=== PATIENT | female | born 1945 | race Hispanic/Latino ===

== ENCOUNTER 2016-04-08 15:07 | Inpatient (IN) | payer MEDICARE ==
--- NOTE | 2016-04-08 17:20 | Emergency Department Report ---
ED Chest Pain HPI - General Chief Complaint: Chest Pain Stated Complaint: SOB/CHEST PAIN Time Seen by Provider: 04/08/16 16:47 Source: patient, EMS Mode of arrival: Stretcher Limitations: No Limitations - History of Present Illness Initial Comments: This is a 70-year-old female presents to the emergency department from across the street at her primary care doctor office, Dr. George Aranda, with complaint of right-sided chest pain and shortness of breath that began this morning. Patient has a history of COPD on 2 L oxygen, hepatitis C, and a kidney mass that they are "monitoring." She denies any history of CT, CVA, PE/ DVT. She is not taken anything for symptoms prior to presentation. She denies any fever, cough, nausea, vomiting, back pain or diaphoresis. Patient says that she had a full cardiac workup about one year ago with [facility] cardiology and says that everything was "normal." Severity scale (0 -10): 0 - Related Data Home Medications Medication Instructions Recorded Confirmed Last Taken Carisoprodol [Carisoprodol] 1 tab PO DAILY 04/08/16 04/08/16 04/08/16 Clarithromycin [Biaxin] 500 mg PO BID 04/08/16 04/08/16 04/08/16 Oxycodone HCl/Acetaminophen 1 tab PO TID 04/08/16 04/08/16 04/08/16 [Percocet 10/325 mg] Singulair 10 mg PO DAILY 04/08/16 04/08/16 04/08/16 Allergies Allergy/AdvReac Type Severity Reaction Status Date / Time aspirin Allergy Hives Verified 09/01/13 09:08 Penicillins Allergy Hives Verified 09/01/13 09:08 tetanus immune globulin Allergy Rash Verified 09/01/13 09:08 JUAN score - Juan Score Age > 65: (1) Yes Aspirin use within the Past 7 Days: (0) No 3 or more CAD Risk Factors: (1) Yes 2 or more Angina events in past 24 hrs: (1) Yes Known CAD with more than 50% Stenosis: (0) No Elevated Cardiac Markers: (0) No ST Deviation Greater than 0.5mm: (0) No JUAN Score: 3 ED Review of Systems ROS: Stated complaint: SOB/CHEST PAIN Other details as noted in HPI Comment: All other systems reviewed and negative Constitutional: denies: chills, fever Eyes: denies: eye pain, eye discharge, vision change ENT: denies: ear pain, throat pain Respiratory: shortness of breath. denies: cough Cardiovascular: chest pain. denies: palpitations Gastrointestinal: denies: abdominal pain, nausea, diarrhea Genitourinary: denies: urgency, dysuria, discharge Musculoskeletal: denies: back pain, joint swelling Skin: denies: rash, lesions Neurological: denies: headache, weakness, paresthesias ED Past Medical Hx - Past Medical History Hx Diabetes: No Hx Liver Disease: Yes (Hep C) Hx Renal Disease: Yes Hx COPD: Yes - Social History Smoking Status: Former Smoker Substance Use Type: None - Medications Home Medications: Home Medications Medication Instructions Recorded Confirmed Last Taken Type Carisoprodol [Carisoprodol] 1 tab PO DAILY 04/08/16 04/08/16 04/08/16 History Clarithromycin [Biaxin] 500 mg PO BID 04/08/16 04/08/16 04/08/16 History Oxycodone HCl/Acetaminophen 1 tab PO TID 04/08/16 04/08/16 04/08/16 History [Percocet 10/325 mg] Singulair 10 mg PO DAILY 04/08/16 04/08/16 04/08/16 History ED Physical Exam - General Limitations: No Limitations - Other Other exam information: GENERAL: The patient is well-developed well-nourished. HEENT: Normocephalic. Atraumatic. Extraocular motions are intact. Patient has moist mucous membranes. Pupils equal reactive to light bilaterally. NECK: Supple. Trachea is midline. CHEST/LUNGS: Clear to auscultation. There is no respiratory distress noted. Chest pain is not reproducible palpation of chest wall. HEART/CARDIOVASCULAR: Regular. There is no tachycardia. There is no gallop rub or murmur. ABDOMEN: Abdomen is soft, nontender. Patient has normal bowel sounds. There is no abdominal distention. SKIN: There is no rash. There is no edema. There is no diaphoresis. NEURO: The patient is awake, alert, and oriented. The patient is cooperative. The patient has no focal neurologic deficits. The patient has normal speech. MUSCULOSKELETAL: There is no tenderness or deformity. There is no limitation range of motion. There is no evidence of acute injury. ED Course Vital Signs 04/08/16 04/08/16 04/08/16 15:38 16:57 17:00 Temperature 98.6 F 98.9 F Pulse Rate 62 67 Pulse Rate [ Bilateral] Respiratory 22 9 L 11 L Rate Respiratory Rate [Bilateral ] Blood Pressure 130/62 Blood Pressure 115/55 [Right] O2 Sat by Pulse 98 99 Oximetry 04/08/16 04/08/16 04/08/16 17:10 17:15 17:20 Temperature Pulse Rate 63 64 Pulse Rate [ Bilateral] Respiratory 9 L 16 11 L Rate Respiratory Rate [Bilateral ] Blood Pressure 115/55 107/54 Blood Pressure [Right] O2 Sat by Pulse 100 99 99 Oximetry 04/08/16 04/08/16 04/08/16 17:30 17:38 17:40 Temperature Pulse Rate 60 64 Pulse Rate [ Bilateral] Respiratory 9 L 18 14 Rate Respiratory Rate [Bilateral ] Blood Pressure 114/63 114/63 Blood Pressure [Right] O2 Sat by Pulse 98 100 Oximetry 04/08/16 04/08/16 04/08/16 17:46 17:47 17:50 Temperature Pulse Rate 65 Pulse Rate [ 89 88 Bilateral] Respiratory 11 L Rate Respiratory 18 16 Rate [Bilateral ] Blood Pressure 108/57 Blood Pressure [Right] O2 Sat by Pulse 98 Oximetry 04/08/16 04/08/16 04/08/16 18:00 18:08 18:10 Temperature Pulse Rate 67 69 Pulse Rate [ Bilateral] Respiratory 14 18 8 L Rate Respiratory Rate [Bilateral ] Blood Pressure 112/59 112/59 Blood Pressure [Right] O2 Sat by Pulse 98 99 Oximetry 04/08/16 04/08/16 04/08/16 18:20 18:30 20:33 Temperature Pulse Rate 71 73 Pulse Rate [ Bilateral] Respiratory 9 L 19 18 Rate Respiratory Rate [Bilateral ] Blood Pressure 106/50 97/48 Blood Pressure [Right] O2 Sat by Pulse 98 97 Oximetry ED Medical Decision Making - Lab Data Result diagrams: 04/08/16 17:24 04/08/16 17:24 - EKG Data -: EKG Interpreted by Ia EKG shows normal: sinus rhythm, axis, intervals, QRS complexes, ST-T waves Rate: normal - EKG Data When compared to previous EKG there are: no significant change (05/27/11) Interpretation: normal EKG - Radiology Data Radiology results: report reviewed, image reviewed interpreted by me: Chest x-ray shows hyperinflation of the lungs and flattened diaphragm consistent with emphysema. No pleural effusions or obvious pneumonia. CT angiography of the chest does not show any pulmonary embolism. There are too vague groundglass densities seen in the right middle lobe of the lungs and may be hypoventilatory changes versus pneumonia. - Medical Decision Making 70-year-old female presents to the emergency department with complaint of right- sided chest pain and shortness of breath that began earlier this morning. She does have a history of COPD. Physical exam is mostly unremarkable except for the fact that the chest pain is not reproducible. Patient's labs include negative troponins 2 this far. EKG did not show any signs of ST elevation CT. Patient given 2 different doses of morphine and still continues of chest discomfort. Chest x-ray does not show any acute process. Patient's d-dimer was slightly elevated so a CT angiography of the chest was done that did not show any PE but did show 2 g last opacities the right middle lobe concerning for pneumonia. This matches the patient's right-sided chest pain. Blood culture sent and patient started on Levaquin and patient will be admitted to the hospital for further evaluation and treatment. Accepted for admission by the hospitalist, Dr. Ac. - Differential Diagnosis CT, CHF, Pneumonia, PE, Costochondritis, COPD Critical Care Time: No Critical care attestation.: If time is entered above; I have spent that time in minutes in the direct care of this critically ill patient, excluding procedure time. ED Disposition Clinical Impression: Chest pain Qualifiers: Chest pain type: unspecified Qualified Code(s): R07.9 - Chest pain, unspecified COPD (chronic obstructive pulmonary disease) Qualifiers: COPD type: emphysema Emphysema type: unspecified Qualified Code(s): J43.9 - Emphysema, unspecified Pneumonia Qualifiers: Pneumonia type: due to unspecified organism Laterality: right Lung location: middle lobe of lung Qualified Code(s): J18.9 - Pneumonia, unspecified organism Disposition: OP ADMITTED IP TO THIS HOSP Is pt being admited?: Yes Condition: Stable Instructions: Chest Pain (ED), Chronic Obstructive Pulmonary Disease (ED), Bacterial Pneumonia (ED) Referrals: PRIMARY CARE, [Primary Care Provider] - 3-5 Days Time of Disposition: 21:29
[2016-04-08] MEDS ORDERED: MORPHINE ONE (17:21)
[2016-04-08] MEDS ORDERED: DUONEB 0.5 MG-3 MG/3 ML SOLN IH ONE (17:24)
[2016-04-08] MEDS ORDERED: MORPHINE IV ONE ×2 (17:24→20:26)
[2016-04-08 17:38] LABS: Basophils % (Auto) 0.6 % (0.0-1.8); Eosinophils % (Auto) 1.3 % (0.0-4.3); Hematocrit 40.4 % (30.3-42.9); Hemoglobin 13.1 gm/dl (10.1-14.3); Mean Corpuscular HGB Conc 32 % (30-34); Mean Corpuscular Hemoglobin 29 pg (28-32); Mean Corpuscular Volume 90 fl (79-97); Platelet Count 306 K/mm3 (140-440); Red Blood Count 4.47 M/mm3 (3.65-5.03); Red Cell Distribution Width 15.8 % (13.2-15.2); White Blood Count 9.8 K/mm3 (4.5-11.0)
[2016-04-08 17:53] LABS: Creatine Kinase MB 3.6 ng/mL (0.0-4.0); INR 0.91 (0.87-1.13)
[2016-04-08 17:54] LABS: Alanine Aminotransferase 58 units/L (7-56); Albumin 3.9 g/dL (3.9-5); Albumin/Globulin Ratio 1.6 %; Alkaline Phosphatase 76 units/L (35-129); Bilirubin,Total 0.5 mg/dL (0.1-1.2); Creatine Kinase 65 units/L (30-135); Partial Thromboplastin Time 28.9 Sec. (24.2-36.6); Total Protein 6.3 g/dL (6.3-8.2)
[2016-04-08 18:04] LABS: Bilirubin,Direct < 0.2 mg/dL (0-0.2); Bilirubin,Indirect 0.3 mg/dL
[2016-04-08 18:09] LABS: Anion Gap 16 mmol/L; Blood Urea Nitrogen 14 mg/dL (7-17); Calcium 9.1 mg/dL (8.4-10.2); Carbon Dioxide 30 mmol/L (22-30); Chloride 100.6 mmol/L (98-107); Glucose 77 mg/dL (65-100); Potassium 4.1 mmol/L (3.6-5.0); Sodium 142 mmol/L (137-145)
--- NOTE | 2016-04-08 18:33 | Admit Criteria Form ---
Admission Criteria Documentation: CHEST PAIN Clinical Indications for Admission to Inpatient Care (Place 'X' for any and all applicable criteria): Admission is indicated for chest pain and ANY ONE of the following(1)(2)(3)(4)(5 ): [ ]I. Angina with acute coronary syndrome (Also use Myocardial Infarction or Angina guideline) [ ]II. Hemodynamic instability [ ]III. Angina needing acute intervention as indicated by ALL of the following( 11)(12): [ ]a) Unstable angina is present as indicated by angina that is ANY ONE of the following: [ ]i) New onset [ ]ii) Nocturnal [ ]iii) Prolonged at rest [ ]iv) Progressive [ ]b) Angina warrants acute intervention as indicated by ANY ONE of the following: [ ]i) Recurrent angina (e.g, not responding as previously to treatment) [ ]ii) Angina at rest or with low-level activities despite initial medical therapy [ ]iii) New or presumably new ST-segment depression on ECG [ ]iv) Signs or symptoms of heart failure (eg, dyspnea, pulmonary edema) [ ]v) New or worsening mitral regurgitation [ ]vi) Hemodynamic instability [ ]vii) Dangerous arrhythmia (eg, sustained ventricular tachycardia) [ ]viii) History of percutaneous coronary intervention within 6 months [ ]ix) History of coronary artery bypass graft surgery [ ]x) RADHA risk score of 2 or greater[A] [ ]xi) History of Diabetes(14) [ ]xii) High-risk cardiac ischemia findings on noninvasive testing (e.g, echocardiogram, treadmill testing, nuclear scan) [ ]xiii) Chronic renal insufficiency (ie, estimated GFR less than 60 mL/min/1.732m) [ ]xiv) Left ventricular ejection fraction less than 40% [ ]IV. Evidence of VT (eg, cardiac biomarkers positive, ST-segment elevation on ECG) also use Myocardial Infarction Criteria Form. [ ]V. Pulmonary edema [ ]. Respiratory distress [ ]VII. Chest pain indicative of serious diagnosis other than coronary artery disease (eg, aortic dissection) [ ]VIII. Contraindications and/or Inappropriate clinical situations for Observational Care in patients with Chest Pain, when ANY ONE of the following is required: [ ]a) Patient with risk factor for pulmonary embolism, acute coronary syndrome and myocardial infarction (18) [ ]b) Patient with Pulmonary embolism require an average LOS of 4.3 days, therefore emergency department observation management is inappropriate 18,23 [ ]c) Painful condition/s in the elderly, have the highest rate of recidivism after emergency department observation management (10.8%) 20,21,22 [ ]d) Elevated cardiac biomarker requires intensive and exhaustive care (19) [ X]IX. General contraindications and/or Inappropriate clinical situations for Observational Care in patients with Chest Pain, when ANY ONE of the following is required: [X ]a) Prediction of prolongation of LOS based on ANY ONE of the following may be considered as a contraindication for observational care 2, 3, 4, 5, 6, 7, 8, 9, 10, 11 [X ]i) Age > 65 yrs. [ ]ii) Patient arriving by ambulance [ ]iii) Patient with high acuity [ ]iv) Patient requiring vital sign monitoring [ ]v) Patient on IV medication [ ]b) Systolic blood pressures 180mmHg 3,12 [ ]c) Patient with altered mental status including delirium and other alteration of consciousness, (3) [ ]d) Patient whose discharge disposition will be to a correction home or rehabilitation home should not be managed in Emergency Department Observation Unit. CMS rule requires 3 days hospital stay before such placement. 3,13 [ ]e) Patient with failure to thrive due to broad array of etiologies 3,16,17 [ ]f) Inability to ambulate 3,14 Extended stay beyond goal length of stay may be needed for (1)(28): [ ]a) Specific condition diagnosed after evaluation (eg, pulmonary embolism, aortic dissection) [ ]b) Unstable angina [ ]c) Continued suspicion of acute coronary syndrome with inability to complete needed cardiac evaluation (eg, patient clinically unable to undergo stress testing) [ ]d) Myocardial infarction (Contents from ANGINA and CHEST PAIN clinical indications for admission to inpatient care have been integrated in this form) The original [facility] content created by [employer] has been revised. The portions of the content which have been revised are identified through the use of italic text or in bold, and [facility] [employer] has neither reviewed nor approved the modified material. All other unmodified content is copyright [facility]. Please see references footnoted in the original [facility] [employer] edition 2016 Admission Criteria Met: Yes
[2016-04-08] MEDS ORDERED: NACL ONE (18:34)
[2016-04-08] MEDS ORDERED: BENADRYL IV ONE (19:33)
--- NOTE | 2016-04-08 20:33 | Cat Scan Report ---
FINAL REPORT PROCEDURE: CT ANGIO CHEST TECHNIQUE: Computerized tomographic angiography of the chest was performed after the IV injection of iodinated nonionic contrast including image processing. The image data was postprocessed using 2-dimensional multiplanar reformatted (MPR) and 3-dimensional (MIP and/or volume rendered) techniques. HISTORY: SOB, elevated dimer COMPARISON: No prior studies are available for comparison. FINDINGS: Mild scarring is seen in the lung apices. Calcified granuloma is seen in the right upper lobe of the lungs posteriorly. Very mild ground-glass density is seen in the right middle lobe of the lungs on image 73 of series 3. Another similar tiny focus of ground-glass density is seen slightly more inferiorly in the right middle lobe. Mild atelectasis is seen at the left CP angle. No pleural effusion or pneumothorax is seen. There is slight heterogeneity of the left lobe of the thyroid gland. Small likely reactive mediastinal lymph nodes are seen. There is a tiny pericardial effusion. Heart and thoracic aorta are normal in size. No aortic dissection is seen. No pulmonary embolus is seen. IMPRESSION: No pulmonary embolus is seen. Two vague ground-glass densities are seen in the right middle lobe of the lungs and may be hypoventilatory changes or mild pneumonia.
[2016-04-08] MEDS ORDERED: LEVAQUIN 750MG/150ML 750 MG/150 ML BAG IV ONE (21:05)
[2016-04-08] MEDS ORDERED: ZOFRAN IV PRN (22:02)
[2016-04-08] MEDS ORDERED: PERCOCET 5/325 PO PRN (22:02)
[2016-04-08] MEDS ORDERED: DULCOLAX PR PRN (22:02)
[2016-04-08] MEDS ORDERED: MILK OF MAGNESIA PO PRN (22:02)
[2016-04-08] MEDS ORDERED: TYLENOL PO PRN (22:02)
--- NOTE | 2016-04-08 22:08 | History and Physical Report ---
History of Present Illness Date of examination: 04/08/16 History of present illness: 70-year-old man with a history of COPD, right kidney mass comes emergency room with complaints of right-sided chest pain and shortness of breath, nonproductive cough. She describes the chest pain as sharp, intermittent in nature lasting for 10 minutes, radiating under the right armpit, intensity follow with 5/10, she cannot identify exacerbating or relieving factors. Admits to palpitation, no nausea vomiting, diaphoresis. Patient has been treated for bronchitis as 3 weeks with azithromycin times 2, Levaquin and prednisone, she stated her symptoms have not improved overall Patient deniesabdominal pain, hematochezia, dysuria, frequency, focal weakness, dysarthria, fever chills, polydipsia polyuria, hot or cold intolerance, easy bruisability, or rash or bleeding from mucosal membrane, rhinorrhea, epistaxis, earache, tinnitus, blurry vision, eye discharge, anxiety, depression. Other review of systems negative PAST SURGICAL HISTORY: Appendectomy, hysterectomy, cholecystectomy, hernia repair SOCIAL HISTORY: Denies alcohol, tobacco, drugs FAMILY HISTORY: Hypertension Medications and Allergies Allergies Allergy/AdvReac Type Severity Reaction Status Date / Time aspirin Allergy Hives Verified 09/01/13 09:08 Penicillins Allergy Hives Verified 09/01/13 09:08 tetanus immune globulin Allergy Rash Verified 09/01/13 09:08 Home Medications Medication Instructions Recorded Confirmed Last Taken Type Carisoprodol [Carisoprodol] 1 tab PO DAILY 04/08/16 04/08/16 04/08/16 History Clarithromycin [Biaxin] 500 mg PO BID 04/08/16 04/08/16 04/08/16 History Oxycodone HCl/Acetaminophen 1 tab PO TID 04/08/16 04/08/16 04/08/16 History [Percocet 10/325 mg] Singulair 10 mg PO DAILY 04/08/16 04/08/16 04/08/16 History Active Meds: Active Medications Levofloxacin/Dextrose (Levaquin 750mg/150ml) 750 mg in 150 mls @ 100 mls/hr IV ONCE ONE Stop: 04/08/16 22:34 Exam - Physical Exam Narrative exam: Gen. appearance: Patient lying in bed, no apparent distress HEENT: Normocephalic, atraumatic, pupils equally round and reactive to light, extraocular movement intact, and no sclericterus,. No JVD or thyromegaly or nodule,neck supple, no carotid bruit ,mucous membranes moist, no exudate or erythema Heart: S1, S2, regular rate and rhythm Lungs: Crackles, breathing comfortable Abdomen: Positive bowel sounds, nontender, nondistended, no organomegaly Extremity: No edema, cyanosis, clubbing Skin: No rash, nodules, warm, dry Neuro: Oriented 3, cranial nerves II-12 intact, speech is fluent, motor and sensory intact - Constitutional Vitals: Temp Pulse Resp BP Pulse Ox 98.9 F 73 18 97/48 97 04/08/16 17:00 04/08/16 18:30 04/08/16 20:33 04/08/16 18:30 04/08/16 18:30 Results - Labs CBC & Chem 7: 04/08/16 17:24 04/08/16 17:24 Labs: Abnormal lab results 04/08/16 04/08/16 04/08/16 Range/Units 17:24 17:24 17:24 RDW 15.8 H (13.2-15.2) % [place] % (Auto) 8.2 H (0.0-7.3) % D-Dimer 276.03 H (0-234) ng/mlDDU ALT 58 H (7-56) units/L CK-MB (CK-2) Rel Index 5.5 H (0-4) - Imaging and Cardiology Chest x-ray: image reviewed CT scan - chest: report reviewed Assessment and Plan Community Acquired Pneumonia COPD exacerbation H/o right kidney mass Spinal Stenosis Admit to medicine Start IV high dose steroids, Levaquin, nebulizer treatments Check cardiac enzymes, continue appropiate outpatient medications Start dvt prophalaxis
[2016-04-09 00:21] LABS: Creatine Kinase 62 units/L (30-135); Creatine Kinase MB 3.2 ng/mL (0.0-4.0)
[2016-04-09] MEDS: DUONEB 0.5 MG-3 MG/3 ML SOLN IH PRN (04:39)
[2016-04-09 06:14] LABS: Basophils % (Auto) 0.1 % (0.0-1.8); Hematocrit 40.6 % (30.3-42.9); Hemoglobin 13.2 gm/dl (10.1-14.3); Mean Corpuscular HGB Conc 33 % (30-34); Mean Corpuscular Hemoglobin 29 pg (28-32); Mean Corpuscular Volume 90 fl (79-97); Platelet Count 287 K/mm3 (140-440); Red Blood Count 4.49 M/mm3 (3.65-5.03); Red Cell Distribution Width 15.6 % (13.2-15.2); White Blood Count 8.3 K/mm3 (4.5-11.0)
[2016-04-09 06:39] LABS: Creatine Kinase MB 2.9 ng/mL (0.0-4.0)
[2016-04-09 06:41] LABS: Creatine Kinase 46 units/L (30-135)
[2016-04-09 06:57] LABS: Anion Gap 17 mmol/L; Blood Urea Nitrogen 18 mg/dL (7-17); Carbon Dioxide 27 mmol/L (22-30); Chloride 100.5 mmol/L (98-107); Glucose 220 mg/dL (65-100); Potassium 4.7 mmol/L (3.6-5.0); Sodium 140 mmol/L (137-145)
--- NOTE | 2016-04-09 09:01 | XRay Report ---
CHEST 2 VIEWS INDICATION: Shortness of breath. Right sided chest pain for one day. History of COPD. COMPARISON: 05/26/2011 FINDINGS: Frontal and lateral chest radiographs, 3 images again demonstrate approximately 6 mm right upper lobe calcified granuloma, mild aortic knob calcifications and well expanded lungs/COPD. Mild biapical scarring or pleural thickening. No pleural effusions or CHF. Normal cardiomediastinal silhouette. EKG leads. Demineralized bones with thoracic spondylosis and mild kyphosis. Cholecystectomy clips. CONCLUSION: No acute chest process with COPD and various other findings again noted, as described. Thank you for the opportunity to participate in this patient's care.
[2016-04-09] MEDS: LOVENOX SUB-Q SCH (10:55)
[2016-04-09] MEDS: LEVAQUIN 750MG/150ML 750 MG/150 ML BAG IV SCH (10:55)
--- NOTE | 2016-04-09 14:37 | Progress Note ---
Assessment and Plan - Patient Problems (1) Acute respiratory failure Current Visit: Yes Status: Acute Qualifiers: Respiratory failure complication: R Plan to address problem: supplemental oxygen, nebs, aspiration precautions, supportive care, NIPPV as clinically indicated. (2) COPD (chronic obstructive pulmonary disease) Current Visit: Yes Status: Acute Qualifiers: COPD type: emphysema Chronic bronchitis type: C Emphysema type: unspecified Qualified Code(s): J43.9 - Emphysema, unspecified Plan to address problem: Supplemental oxygen, nebs, steroids, IV abx, supportive care. (3) Pneumonia Current Visit: Yes Status: Acute Qualifiers: Pneumonia type: due to unspecified organism Aspiration pneumonia type: A Laterality: right Lung location: middle lobe of lung Qualified Code(s): J18.9 - Pneumonia, unspecified organism Plan to address problem: Iv abx, supportive care, nebs, (4) DVT prophylaxis Current Visit: Yes Status: Acute History Interval history: Pt resting in bed, Pt comfortable with supplemental oxygen in place. Pt complains of anxiety. Hospitalist Physical - Constitutional Vitals: Temp Pulse Resp BP Pulse Ox 97.8 F 64 18 111/60 95 04/09/16 07:20 04/09/16 07:20 04/09/16 07:20 04/09/16 07:20 04/09/16 09:22 General appearance: Present: no acute distress - EENT Eyes: Present: PERRL ENT: hearing intact - Neck Neck: Present: supple - Respiratory Respiratory: bilateral: diminished - Cardiovascular Rhythm: regular Heart Sounds: Present: S1 & S2 - Extremities Extremities: no ischemia Peripheral Pulses: within normal limits - Abdominal General gastrointestinal: soft, non-tender, non-distended - Integumentary Integumentary: Present: clear, dry - Psychiatric Psychiatric: appropriate mood/affect, cooperative - Neurologic Neurologic: CNII-XII intact Results - Labs CBC & Chem 7: 04/09/16 05:41 04/09/16 05:41 Labs: Laboratory Last Values WBC 8.3 K/mm3 (4.5-11.0) 04/09/16 05:41 RBC 4.49 M/mm3 (3.65-5.03) 04/09/16 05:41 Hgb 13.2 gm/dl (10.1-14.3) 04/09/16 05:41 Hct 40.6 % (30.3-42.9) 04/09/16 05:41 MCV 90 fl (79-97) 04/09/16 05:41 MCH 29 pg (28-32) 04/09/16 05:41 MCHC 33 % (30-34) 04/09/16 05:41 RDW 15.6 % (13.2-15.2) H 04/09/16 05:41 Plt Count 287 K/mm3 (140-440) 04/09/16 05:41 Lymph % (Auto) 9.8 % (13.4-35.0) L 04/09/16 05:41 Desha % (Auto) 1.2 % (0.0-7.3) 04/09/16 05:41 Eos % (Auto) 0.0 % (0.0-4.3) 04/09/16 05:41 Baso % (Auto) 0.1 % (0.0-1.8) 04/09/16 05:41 Lymph # 0.8 K/mm3 (1.2-5.4) L 04/09/16 05:41 Desha # 0.1 K/mm3 (0.0-0.8) 04/09/16 05:41 Eos # 0.0 K/mm3 (0.0-0.4) 04/09/16 05:41 Baso # 0.0 K/mm3 (0.0-0.1) 04/09/16 05:41 Seg Neutrophils % 88.9 % (40.0-70.0) H 04/09/16 05:41 Seg Neutrophils # 7.4 K/mm3 (1.8-7.7) 04/09/16 05:41 PT 12.2 Sec. (12.2-14.9) 04/08/16 17:24 INR 0.91 (0.87-1.13) 04/08/16 17:24 APTT 28.9 Sec. (24.2-36.6) 04/08/16 17:24 D-Dimer 276.03 ng/mlDDU (0-234) H 04/08/16 17:24 Sodium 140 mmol/L (137-145) 04/09/16 05:41 Potassium 4.7 mmol/L (3.6-5.0) 04/09/16 05:41 Chloride 100.5 mmol/L (98-107) 04/09/16 05:41 Carbon Dioxide 27 mmol/L (22-30) 04/09/16 05:41 Anion Gap 17 mmol/L 04/09/16 05:41 BUN 18 mg/dL (7-17) H 04/09/16 05:41 Creatinine 0.6 mg/dL (0.7-1.2) L 04/09/16 05:41 Estimated GFR > 60 ml/min 04/09/16 05:41 BUN/Creatinine Ratio 30.00 % 04/09/16 05:41 Glucose 220 mg/dL (65-100) H 04/09/16 05:41 Calcium 9.0 mg/dL (8.4-10.2) 04/09/16 05:41 Total Bilirubin 0.5 mg/dL (0.1-1.2) 04/08/16 17:24 Direct Bilirubin < 0.2 mg/dL (0-0.2) 04/08/16 17:24 Indirect Bilirubin 0.3 mg/dL 04/08/16 17:24 AST 36 units/L (5-40) 04/08/16 17:24 ALT 58 units/L (7-56) H 04/08/16 17:24 Alkaline Phosphatase 76 units/L (35-129) 04/08/16 17:24 Total Creatine Kinase 46 units/L (30-135) 04/09/16 05:41 CK-MB (CK-2) 2.9 ng/mL (0.0-4.0) 04/09/16 05:41 CK-MB (CK-2) Rel Index 6.3 (0-4) H 04/09/16 05:41 Troponin T < 0.010 ng/mL (0.00-0.029) 04/09/16 05:41 Total Protein 6.3 g/dL (6.3-8.2) 04/08/16 17:24 Albumin 3.9 g/dL (3.9-5) 04/08/16 17:24 Albumin/Globulin Ratio 1.6 % 04/08/16 17:24
[2016-04-09] MEDS: PERCOCET 5/325 PO PRN (15:45)
[2016-04-10] MEDS: PERCOCET 5/325 PO PRN ×3 (01:10→14:56)
[2016-04-10] MEDS: DUONEB 0.5 MG-3 MG/3 ML SOLN IH PRN ×2 (03:10→08:33)
[2016-04-10] MEDS: LEVAQUIN 750MG/150ML 750 MG/150 ML BAG IV SCH (09:57)
[2016-04-10] MEDS: LOVENOX SUB-Q SCH (09:58)
[2016-04-10] MEDS: DUONEB 0.5 MG-3 MG/3 ML SOLN IH SCH ×2 (14:04→19:36)
[2016-04-10] MEDS: HYDROMET PO PRN ×2 (14:57→21:38)
--- NOTE | 2016-04-10 20:56 | Progress Note ---
Assessment and Plan - Patient Problems (1) Acute respiratory failure Current Visit: Yes Status: Acute Qualifiers: Respiratory failure complication: R Plan to address problem: supplemental oxygen, nebs, aspiration precautions, supportive care, NIPPV as clinically indicated. (2) COPD (chronic obstructive pulmonary disease) Current Visit: Yes Status: Acute Qualifiers: COPD type: emphysema Chronic bronchitis type: C Emphysema type: unspecified Qualified Code(s): J43.9 - Emphysema, unspecified Plan to address problem: Supplemental oxygen, nebs, steroids, IV abx, supportive care. (3) Pneumonia Current Visit: Yes Status: Acute Qualifiers: Pneumonia type: due to unspecified organism Aspiration pneumonia type: A Laterality: right Lung location: middle lobe of lung Qualified Code(s): J18.9 - Pneumonia, unspecified organism Plan to address problem: Iv abx, supportive care, nebs, (4) DVT prophylaxis Current Visit: Yes Status: Acute History Interval history: Pt resting in bed, Pt comfortable with supplemental oxygen in place. Pt complains of anxiety. D/C planning in AM. Hospitalist Physical - Constitutional Vitals: Temp Pulse Resp BP Pulse Ox 98.5 F 73 16 96/52 95 04/10/16 14:45 04/10/16 19:46 04/10/16 19:46 04/10/16 14:45 04/10/16 19:36 General appearance: Present: no acute distress - EENT Eyes: Present: PERRL ENT: hearing intact - Neck Neck: Present: supple - Respiratory Respiratory effort: normal Respiratory: bilateral: diminished - Cardiovascular Rhythm: regular Heart Sounds: Present: S1 & S2 - Extremities Extremities: no ischemia Peripheral Pulses: within normal limits - Abdominal General gastrointestinal: soft, non-tender, non-distended - Integumentary Integumentary: Present: clear, dry - Psychiatric Psychiatric: appropriate mood/affect - Neurologic Neurologic: CNII-XII intact Results - Labs CBC & Chem 7: 04/09/16 05:41 04/09/16 05:41 Labs: Laboratory Last Values WBC 8.3 K/mm3 (4.5-11.0) 04/09/16 05:41 RBC 4.49 M/mm3 (3.65-5.03) 04/09/16 05:41 Hgb 13.2 gm/dl (10.1-14.3) 04/09/16 05:41 Hct 40.6 % (30.3-42.9) 04/09/16 05:41 MCV 90 fl (79-97) 04/09/16 05:41 MCH 29 pg (28-32) 04/09/16 05:41 MCHC 33 % (30-34) 04/09/16 05:41 RDW 15.6 % (13.2-15.2) H 04/09/16 05:41 Plt Count 287 K/mm3 (140-440) 04/09/16 05:41 Lymph % (Auto) 9.8 % (13.4-35.0) L 04/09/16 05:41 [place] % (Auto) 1.2 % (0.0-7.3) 04/09/16 05:41 Eos % (Auto) 0.0 % (0.0-4.3) 04/09/16 05:41 Baso % (Auto) 0.1 % (0.0-1.8) 04/09/16 05:41 Lymph # 0.8 K/mm3 (1.2-5.4) L 04/09/16 05:41 [place] # 0.1 K/mm3 (0.0-0.8) 04/09/16 05:41 Eos # 0.0 K/mm3 (0.0-0.4) 04/09/16 05:41 Baso # 0.0 K/mm3 (0.0-0.1) 04/09/16 05:41 Seg Neutrophils % 88.9 % (40.0-70.0) H 04/09/16 05:41 Seg Neutrophils # 7.4 K/mm3 (1.8-7.7) 04/09/16 05:41 PT 12.2 Sec. (12.2-14.9) 04/08/16 17:24 INR 0.91 (0.87-1.13) 04/08/16 17:24 APTT 28.9 Sec. (24.2-36.6) 04/08/16 17:24 D-Dimer 276.03 ng/mlDDU (0-234) H 04/08/16 17:24 Sodium 140 mmol/L (137-145) 04/09/16 05:41 Potassium 4.7 mmol/L (3.6-5.0) 04/09/16 05:41 Chloride 100.5 mmol/L (98-107) 04/09/16 05:41 Carbon Dioxide 27 mmol/L (22-30) 04/09/16 05:41 Anion Gap 17 mmol/L 04/09/16 05:41 BUN 18 mg/dL (7-17) H 04/09/16 05:41 Creatinine 0.6 mg/dL (0.7-1.2) L 04/09/16 05:41 Estimated GFR > 60 ml/min 04/09/16 05:41 BUN/Creatinine Ratio 30.00 % 04/09/16 05:41 Glucose 220 mg/dL (65-100) H 04/09/16 05:41 Calcium 9.0 mg/dL (8.4-10.2) 04/09/16 05:41 Total Bilirubin 0.5 mg/dL (0.1-1.2) 04/08/16 17:24 Direct Bilirubin < 0.2 mg/dL (0-0.2) 04/08/16 17:24 Indirect Bilirubin 0.3 mg/dL 04/08/16 17:24 AST 36 units/L (5-40) 04/08/16 17:24 ALT 58 units/L (7-56) H 04/08/16 17:24 Alkaline Phosphatase 76 units/L (35-129) 04/08/16 17:24 Total Creatine Kinase 46 units/L (30-135) 04/09/16 05:41 CK-MB (CK-2) 2.9 ng/mL (0.0-4.0) 04/09/16 05:41 CK-MB (CK-2) Rel Index 6.3 (0-4) H 04/09/16 05:41 Troponin T < 0.010 ng/mL (0.00-0.029) 04/09/16 05:41 Total Protein 6.3 g/dL (6.3-8.2) 04/08/16 17:24 Albumin 3.9 g/dL (3.9-5) 04/08/16 17:24 Albumin/Globulin Ratio 1.6 % 04/08/16 17:24
[2016-04-11] MEDS: PERCOCET 5/325 PO PRN ×3 (00:36→15:14)
--- NOTE | 2016-04-11 07:15 | Discharge Summary ---
Providers - Providers Date of Admission: 04/08/16 22:03 Attending physician: RADHA PAYNE Primary care physician: LOG HAUL OPERATOR Hospitalization Condition: Stable Disposition: STILL A PATIENT - Discharge Diagnoses (1) Acute respiratory failure Status: Acute Qualifiers: Respiratory failure complication: R (2) COPD (chronic obstructive pulmonary disease) Status: Acute Qualifiers: COPD type: emphysema Chronic bronchitis type: C Emphysema type: unspecified Qualified Code(s): J43.9 - Emphysema, unspecified (3) Pneumonia Status: Acute Qualifiers: Pneumonia type: due to unspecified organism Aspiration pneumonia type: A Laterality: right Lung location: middle lobe of lung Qualified Code(s): J18.9 - Pneumonia, unspecified organism (4) DVT prophylaxis Status: Acute Exam - Constitutional Vitals: Temp Pulse Resp BP Pulse Ox 98.1 F 85 24 94/61 98 04/10/16 23:30 04/10/16 23:30 04/10/16 23:30 04/10/16 23:30 04/10/16 23:30 Plan Follow up with: PRIMARY CAREMD [Primary Care Provider] - 3-5 Days Prescriptions: clonazePAM [KlonoPIN] 0.25 mg PO QHS PRN #30 tablet PRN Reason: Anxiety HYDROcodone/HOMATROP 5-1.5 [HYDROcodone-Homatropin 5-1.5 mg per 5 ML] 10 ml PO Q6H PRN #120 ml PRN Reason: Cough
[2016-04-11] MEDS: LEVAQUIN 750MG/150ML 750 MG/150 ML BAG IV SCH (09:28)
[2016-04-11] MEDS: LOVENOX SUB-Q SCH (09:29)
[2016-04-11] MEDS: DUONEB 0.5 MG-3 MG/3 ML SOLN IH SCH ×3 (10:15→20:41)
[2016-04-11] MEDS: HYDROMET PO PRN (10:59)
[2016-04-12] MEDS: PERCOCET 5/325 PO PRN ×2 (06:06→12:55)
--- NOTE | 2016-04-12 07:06 | Progress Note ---
Assessment and Plan - Patient Problems (1) Acute respiratory failure Current Visit: Yes Status: Acute Qualifiers: Respiratory failure complication: R Plan to address problem: supplemental oxygen, nebs, aspiration precautions, supportive care, NIPPV as clinically indicated. (2) COPD (chronic obstructive pulmonary disease) Current Visit: Yes Status: Acute Qualifiers: COPD type: emphysema Chronic bronchitis type: C Emphysema type: unspecified Qualified Code(s): J43.9 - Emphysema, unspecified Plan to address problem: Supplemental oxygen, nebs, steroids, IV abx, supportive care. (3) Pneumonia Current Visit: Yes Status: Acute Qualifiers: Pneumonia type: due to unspecified organism Aspiration pneumonia type: A Laterality: right Lung location: middle lobe of lung Qualified Code(s): J18.9 - Pneumonia, unspecified organism Plan to address problem: Iv abx, supportive care, nebs, (4) DVT prophylaxis Current Visit: Yes Status: Acute History Interval history: Pt resting in bed, Pt comfortable with supplemental oxygen in place. Pt complains of anxiety. Pt states that she wants to stay in the hospital another day. Pt informed of discharge. Pt medically optimized and back to usual state of health. Hospitalist Physical - Constitutional Vitals: Temp Pulse Resp BP Pulse Ox 98.0 F 72 18 95/51 94 04/11/16 23:12 04/11/16 23:12 04/11/16 23:12 04/11/16 23:12 04/11/16 23:12 General appearance: Present: no acute distress - EENT Eyes: Present: PERRL, EOM intact ENT: hearing intact - Neck Neck: Present: supple - Respiratory Respiratory effort: normal Respiratory: bilateral: diminished - Cardiovascular Rhythm: regular Heart Sounds: Present: S1 & S2 - Extremities Extremities: no ischemia Peripheral Pulses: within normal limits - Abdominal General gastrointestinal: soft, non-tender, non-distended - Integumentary Integumentary: Present: clear, dry - Psychiatric Psychiatric: appropriate mood/affect, cooperative - Neurologic Neurologic: CNII-XII intact, moves all extremities Results - Labs CBC & Chem 7: 04/09/16 05:41 04/09/16 05:41 Labs: Laboratory Last Values WBC 8.3 K/mm3 (4.5-11.0) 04/09/16 05:41 RBC 4.49 M/mm3 (3.65-5.03) 04/09/16 05:41 Hgb 13.2 gm/dl (10.1-14.3) 04/09/16 05:41 Hct 40.6 % (30.3-42.9) 04/09/16 05:41 MCV 90 fl (79-97) 04/09/16 05:41 MCH 29 pg (28-32) 04/09/16 05:41 MCHC 33 % (30-34) 04/09/16 05:41 RDW 15.6 % (13.2-15.2) H 04/09/16 05:41 Plt Count 287 K/mm3 (140-440) 04/09/16 05:41 Lymph % (Auto) 9.8 % (13.4-35.0) L 04/09/16 05:41 [place] % (Auto) 1.2 % (0.0-7.3) 04/09/16 05:41 Eos % (Auto) 0.0 % (0.0-4.3) 04/09/16 05:41 Baso % (Auto) 0.1 % (0.0-1.8) 04/09/16 05:41 Lymph # 0.8 K/mm3 (1.2-5.4) L 04/09/16 05:41 [place] # 0.1 K/mm3 (0.0-0.8) 04/09/16 05:41 Eos # 0.0 K/mm3 (0.0-0.4) 04/09/16 05:41 Baso # 0.0 K/mm3 (0.0-0.1) 04/09/16 05:41 Seg Neutrophils % 88.9 % (40.0-70.0) H 04/09/16 05:41 Seg Neutrophils # 7.4 K/mm3 (1.8-7.7) 04/09/16 05:41 PT 12.2 Sec. (12.2-14.9) 04/08/16 17:24 INR 0.91 (0.87-1.13) 04/08/16 17:24 APTT 28.9 Sec. (24.2-36.6) 04/08/16 17:24 D-Dimer 276.03 ng/mlDDU (0-234) H 04/08/16 17:24 Sodium 140 mmol/L (137-145) 04/09/16 05:41 Potassium 4.7 mmol/L (3.6-5.0) 04/09/16 05:41 Chloride 100.5 mmol/L (98-107) 04/09/16 05:41 Carbon Dioxide 27 mmol/L (22-30) 04/09/16 05:41 Anion Gap 17 mmol/L 04/09/16 05:41 BUN 18 mg/dL (7-17) H 04/09/16 05:41 Creatinine 0.6 mg/dL (0.7-1.2) L 04/09/16 05:41 Estimated GFR > 60 ml/min 04/09/16 05:41 BUN/Creatinine Ratio 30.00 % 04/09/16 05:41 Glucose 220 mg/dL (65-100) H 04/09/16 05:41 Calcium 9.0 mg/dL (8.4-10.2) 04/09/16 05:41 Total Bilirubin 0.5 mg/dL (0.1-1.2) 04/08/16 17:24 Direct Bilirubin < 0.2 mg/dL (0-0.2) 04/08/16 17:24 Indirect Bilirubin 0.3 mg/dL 04/08/16 17:24 AST 36 units/L (5-40) 04/08/16 17:24 ALT 58 units/L (7-56) H 04/08/16 17:24 Alkaline Phosphatase 76 units/L (35-129) 04/08/16 17:24 Total Creatine Kinase 46 units/L (30-135) 04/09/16 05:41 CK-MB (CK-2) 2.9 ng/mL (0.0-4.0) 04/09/16 05:41 CK-MB (CK-2) Rel Index 6.3 (0-4) H 04/09/16 05:41 Troponin T < 0.010 ng/mL (0.00-0.029) 04/09/16 05:41 Total Protein 6.3 g/dL (6.3-8.2) 04/08/16 17:24 Albumin 3.9 g/dL (3.9-5) 04/08/16 17:24 Albumin/Globulin Ratio 1.6 % 04/08/16 17:24
[2016-04-12] MEDS: DUONEB 0.5 MG-3 MG/3 ML SOLN IH SCH ×3 (09:00→20:22)
[2016-04-12] MEDS: LEVAQUIN 750MG/150ML 750 MG/150 ML BAG IV SCH (10:16)
[2016-04-12] MEDS: LOVENOX SUB-Q SCH (10:17)
[2016-04-13] MEDS: PERCOCET 5/325 PO PRN (06:36)
[2016-04-13] MEDS: DUONEB 0.5 MG-3 MG/3 ML SOLN IH SCH (09:17)
[2016-04-13] MEDS ORDERED: PROVENTIL IH PRN (09:23)
[2016-04-13 09:47] VITALS: BP 110/71
[2016-04-13] MEDS: LOVENOX SUB-Q SCH (09:56)
[2016-04-13] MEDS: LEVAQUIN 750MG/150ML 750 MG/150 ML BAG IV SCH (09:56)
[2016-04-13] MEDS ORDERED: DUONEB 0.5 MG-3 MG/3 ML SOLN IH SCH (14:00)
--- NOTE | 2016-04-13 16:52 | Discharge Summary ---
Providers - Providers Date of Admission: 04/08/16 22:03 Attending physician: RADHA PAYNE Primary care physician: SHIP BOSS Hospitalization Condition: Stable Disposition: STILL A PATIENT - Discharge Diagnoses (1) Acute respiratory failure Status: Resolved Qualifiers: Respiratory failure complication: R (2) COPD (chronic obstructive pulmonary disease) Status: Acute Qualifiers: COPD type: emphysema Chronic bronchitis type: C Emphysema type: unspecified Qualified Code(s): J43.9 - Emphysema, unspecified (3) Pneumonia Status: Acute Qualifiers: Pneumonia type: due to unspecified organism Aspiration pneumonia type: A Laterality: right Lung location: middle lobe of lung Qualified Code(s): J18.9 - Pneumonia, unspecified organism (4) DVT prophylaxis Status: Acute Exam - Constitutional Vitals: Temp Pulse Resp BP Pulse Ox 97.9 F 91 H 16 110/71 97 04/13/16 08:46 04/13/16 14:15 04/13/16 14:15 04/13/16 08:46 04/13/16 09:22 Plan Follow up with: PRIMARY CARE, [Primary Care Provider] - 3-5 Days Prescriptions: Azithromycin [Zithromax TAB] 250 mg PO QDAY #6 tablet clonazePAM [KlonoPIN] 0.25 mg PO QHS PRN #30 tablet PRN Reason: Anxiety HYDROcodone/HOMATROP 5-1.5 [HYDROcodone-Homatropin 5-1.5 mg per 5 ML] 10 ml PO Q6H PRN #120 ml PRN Reason: Cough Prednisone [predniSONE 10 mg (6-Day Pack, 21 Tabs)] 10 mg PO .TAPER #1 tab.ds.pk
--- NOTE | 2016-04-13 16:52 | Progress Note ---
Assessment and Plan - Patient Problems (1) Acute respiratory failure Current Visit: Yes Status: Resolved Qualifiers: Respiratory failure complication: R Plan to address problem: supplemental oxygen, nebs, aspiration precautions, supportive care, NIPPV as clinically indicated. (2) COPD (chronic obstructive pulmonary disease) Current Visit: Yes Status: Acute Qualifiers: COPD type: emphysema Chronic bronchitis type: C Emphysema type: unspecified Qualified Code(s): J43.9 - Emphysema, unspecified Plan to address problem: Supplemental oxygen, nebs, steroids, IV abx, supportive care. (3) Pneumonia Current Visit: Yes Status: Acute Qualifiers: Pneumonia type: due to unspecified organism Aspiration pneumonia type: A Laterality: right Lung location: middle lobe of lung Qualified Code(s): J18.9 - Pneumonia, unspecified organism Plan to address problem: Iv abx, supportive care, nebs, (4) DVT prophylaxis Current Visit: Yes Status: Acute History Interval history: Pt resting in bed, Pt comfortable with supplemental oxygen in place. Pt complains of anxiety. Pt states that she wants to stay in the hospital. Pt informed of discharge. Pt medically optimized and back to usual state of health. Hospitalist Physical - Constitutional Vitals: Temp Pulse Resp BP Pulse Ox 97.9 F 91 H 16 110/71 97 04/13/16 08:46 04/13/16 14:15 04/13/16 14:15 04/13/16 08:46 04/13/16 09:22 General appearance: Present: no acute distress - EENT Eyes: Present: PERRL, EOM intact ENT: hearing intact - Neck Neck: Present: supple - Respiratory Respiratory: bilateral: diminished - Cardiovascular Rhythm: regular Heart Sounds: Present: S1 & S2 - Extremities Extremities: no ischemia Peripheral Pulses: within normal limits - Abdominal General gastrointestinal: soft, non-tender, non-distended - Integumentary Integumentary: Present: clear, dry - Psychiatric Psychiatric: appropriate mood/affect, cooperative - Neurologic Neurologic: CNII-XII intact Results - Labs CBC & Chem 7: 04/09/16 05:41 04/09/16 05:41 Labs: Laboratory Last Values WBC 8.3 K/mm3 (4.5-11.0) 04/09/16 05:41 RBC 4.49 M/mm3 (3.65-5.03) 04/09/16 05:41 Hgb 13.2 gm/dl (10.1-14.3) 04/09/16 05:41 Hct 40.6 % (30.3-42.9) 04/09/16 05:41 MCV 90 fl (79-97) 04/09/16 05:41 MCH 29 pg (28-32) 04/09/16 05:41 MCHC 33 % (30-34) 04/09/16 05:41 RDW 15.6 % (13.2-15.2) H 04/09/16 05:41 Plt Count 287 K/mm3 (140-440) 04/09/16 05:41 Lymph % (Auto) 9.8 % (13.4-35.0) L 04/09/16 05:41 [place] % (Auto) 1.2 % (0.0-7.3) 04/09/16 05:41 Eos % (Auto) 0.0 % (0.0-4.3) 04/09/16 05:41 Baso % (Auto) 0.1 % (0.0-1.8) 04/09/16 05:41 Lymph # 0.8 K/mm3 (1.2-5.4) L 04/09/16 05:41 [place] # 0.1 K/mm3 (0.0-0.8) 04/09/16 05:41 Eos # 0.0 K/mm3 (0.0-0.4) 04/09/16 05:41 Baso # 0.0 K/mm3 (0.0-0.1) 04/09/16 05:41 Seg Neutrophils % 88.9 % (40.0-70.0) H 04/09/16 05:41 Seg Neutrophils # 7.4 K/mm3 (1.8-7.7) 04/09/16 05:41 PT 12.2 Sec. (12.2-14.9) 04/08/16 17:24 INR 0.91 (0.87-1.13) 04/08/16 17:24 APTT 28.9 Sec. (24.2-36.6) 04/08/16 17:24 D-Dimer 276.03 ng/mlDDU (0-234) H 04/08/16 17:24 Sodium 140 mmol/L (137-145) 04/09/16 05:41 Potassium 4.7 mmol/L (3.6-5.0) 04/09/16 05:41 Chloride 100.5 mmol/L (98-107) 04/09/16 05:41 Carbon Dioxide 27 mmol/L (22-30) 04/09/16 05:41 Anion Gap 17 mmol/L 04/09/16 05:41 BUN 18 mg/dL (7-17) H 04/09/16 05:41 Creatinine 0.6 mg/dL (0.7-1.2) L 04/09/16 05:41 Estimated GFR > 60 ml/min 04/09/16 05:41 BUN/Creatinine Ratio 30.00 % 04/09/16 05:41 Glucose 220 mg/dL (65-100) H 04/09/16 05:41 Calcium 9.0 mg/dL (8.4-10.2) 04/09/16 05:41 Total Bilirubin 0.5 mg/dL (0.1-1.2) 04/08/16 17:24 Direct Bilirubin < 0.2 mg/dL (0-0.2) 04/08/16 17:24 Indirect Bilirubin 0.3 mg/dL 04/08/16 17:24 AST 36 units/L (5-40) 04/08/16 17:24 ALT 58 units/L (7-56) H 04/08/16 17:24 Alkaline Phosphatase 76 units/L (35-129) 04/08/16 17:24 Total Creatine Kinase 46 units/L (30-135) 04/09/16 05:41 CK-MB (CK-2) 2.9 ng/mL (0.0-4.0) 04/09/16 05:41 CK-MB (CK-2) Rel Index 6.3 (0-4) H 04/09/16 05:41 Troponin T < 0.010 ng/mL (0.00-0.029) 04/09/16 05:41 Total Protein 6.3 g/dL (6.3-8.2) 04/08/16 17:24 Albumin 3.9 g/dL (3.9-5) 04/08/16 17:24 Albumin/Globulin Ratio 1.6 % 04/08/16 17:24
== END 2016-04-13 17:30 | disposition home or self-care (01) | DRG 193 ==
LOC: ED 15:07 → 2B-SURG 22:03 → 3A 04-10 12:01
PROVIDERS: ADMIT Internal Medicine; ATTEND Internal Medicine
DX: J18.9 Pneumonia, unspecified organism (principal); J96.00 Acute respiratory failure, unspecified whether with hypoxia or hypercapnia; J44.1 Chronic obstructive pulmonary disease with (acute) exacerbation; M48.00 Spinal stenosis, site unspecified; Z88.6 Allergy status to analgesic agent; Z88.0 Allergy status to penicillin; Z88.8 Allergy status to other drugs, medicaments and biological substances; Z87.891 Personal history of nicotine dependence; Z90.49 Acquired absence of other specified parts of digestive tract; Z90.710 Acquired absence of both cervix and uterus; Z82.49 Family history of ischemic heart disease and other diseases of the circulatory system; Z87.898 Personal history of other specified conditions
CPT/HCPCS: 36415; 71020; 71275; 80048; 80074; 82550; 82553; 84484; 85025; 85379; 85610; 85730; 87040; 93005; 93010; 94640; 94760; 96365; 96375; 96376; J1200; J1650; J1956; J2270; J2930; Q9967

== ENCOUNTER 2016-09-22 16:28 | Emergency (ER) | payer MEDICARE ==
[2016-09-22] MEDS ORDERED: MORPHINE IV ONE (18:33)
[2016-09-22] MEDS ORDERED: ZOFRAN IV ONE (18:33)
--- NOTE | 2016-09-22 18:34 | Emergency Department Report ---
HPI - General Chief Complaint: Arrhythmia/Palpitations Time Seen by Provider: 09/22/16 18:29 - HPI HPI: Patient with history of atrial fibrillation came to the ED with palpitation feeling, symptoms came and went for about an hour. Patient currently feels better. Sinus rhythm on monitor while in ER bed. Patient denies any nausea or vomiting, chest pain. Compliant with medications. ED Past Medical Hx - Past Medical History Hx Diabetes: No Hx Liver Disease: Yes (Hep C) Hx Renal Disease: Yes Hx COPD: Yes - Family History Family history: hypertension - Social History Smoking Status: Never Smoker - Medications Home Medications: Home Medications Medication Instructions Recorded Confirmed Last Taken Type Carisoprodol 1 tab PO DAILY 04/08/16 04/08/16 04/08/16 History Oxycodone HCl/Acetaminophen 1 tab PO TID 04/08/16 04/08/16 04/08/16 History [Percocet 10/325 mg] Singulair 10 mg PO DAILY 04/08/16 04/08/16 04/08/16 History Azithromycin [Zithromax TAB] 250 mg PO QDAY #6 tablet 04/11/16 Unknown Rx HYDROcodone/HOMATROP 5-1.5 10 ml PO Q6H PRN #120 ml 04/11/16 Unknown Rx [HYDROcodone-Homatropin 5-1.5 mg per 5 ML] Ipratropium/Albuterol Sulfate 1 ampul IH TIDRT ampul.neb 04/11/16 Unknown Rx [DUONEB *Not for PRN Use*] Prednisone [predniSONE 10 mg 10 mg PO .TAPER #1 tab.ds.pk 04/11/16 Unknown Rx (6-Day Pack, 21 Tabs)] clonazePAM [KlonoPIN] 0.25 mg PO QHS PRN #30 tablet 04/11/16 Unknown Rx ED Review of Systems ROS: Stated complaint: A-FIB Other details as noted in HPI Comment: All other systems reviewed and negative Respiratory: no symptoms reported Cardiovascular: palpitations Endocrine: no symptoms reported Physical Exam - Physical Exam Physical Exam: Vital signs reviewed GENERAL APPEARANCE: Well developed, well nourished, alert and cooperative, and appears to be in no acute distress. HEAD: normocephalic. EYES: PERRL, EOMI. Fundi normal, vision is grossly intact. EARS: External auditory canals and tympanic membranes clear, hearing grossly intact. NOSE: No nasal discharge. THROAT: Oral cavity and pharynx normal. No inflammation, swelling, exudate, or lesions. Teeth and gingiva in good general condition. NECK: Neck supple, non-tender without lymphadenopathy, masses or thyromegaly. CARDIAC: Normal S1 and S2. No S3, S4 or murmurs. Rhythm is regular. There is no peripheral edema, cyanosis or pallor. Extremities are warm and well perfused. Capillary refill is less than 2 seconds. No carotid bruits. LUNGS: Clear to auscultation and percussion without rales, rhonchi, wheezing or diminished breath sounds. ABDOMEN: Positive bowel sounds. Soft, nondistended, nontender. No guarding or rebound. No masses. MUSKULOSKELETAL: Adequately aligned spine. ROM intact spine and extremities. No joint erythema or tenderness. Normal muscular development. Normal gait. BACK: Examination of the spine reveals normal gait and posture, no spinal deformity, symmetry of spinal muscles, without tenderness, decreased range of motion or muscular spasm. EXTREMITIES: No significant deformity or joint abnormality. No edema. Peripheral pulses intact. No varicosities. LOWER EXTREMITY: Examination of both feet reveals all toes to be normal in size and symmetry, normal range of motion, normal sensation with distal capillary filling of less than 2 seconds without tenderness, swelling, discoloration, nodules, weakness or deformity; examination of both ankles, knees, legs, and hips reveals normal range of motion, normal sensation without tenderness, swelling, discoloration, crepitus, weakness or deformity. NEUROLOGICAL: CN II-XII intact. Strength and sensation symmetric and intact throughout. Reflexes 2+ throughout. Cerebellar testing normal. SKIN: Skin normal color, texture and turgor with no lesions or eruptions. PSYCHIATRIC: The mental examination revealed the patient was oriented to person , place, and time. The patient was able to demonstrate good judgement and reason , without hallucinations, abnormal affect or abnormal behaviors during the examination. Patient is not suicidal. ED Course - Reevaluation(s) Reevaluation #1: 09/22/16 21:02 Although patient was better, in sinus rhythm, she was advised to be admitted for observation, patient refuses and wants to go home. ED Medical Decision Making - Lab Data Result diagrams: 09/22/16 18:53 08/01/17 18:53 Critical care attestation.: If time is entered above; I have spent that time in minutes in the direct care of this critically ill patient, excluding procedure time. ED Disposition Clinical Impression: Atrial fibrillation Disposition: DC-01 TO HOME OR SELFCARE Is pt being admited?: No Does the pt Need Aspirin: No Condition: Stable
[2016-09-22 19:22] LABS: Basophils % (Auto) 0.4 % (0.0-1.8); Eosinophils % (Auto) 0.3 % (0.0-4.3); Hematocrit 41.3 % (30.3-42.9); Hemoglobin 13.9 gm/dl (10.1-14.3); Mean Corpuscular HGB Conc 34 % (30-34); Mean Corpuscular Hemoglobin 31 pg (28-32); Mean Corpuscular Volume 92 fl (79-97); Platelet Count 252 K/mm3 (140-440); Red Blood Count 4.52 M/mm3 (3.65-5.03); Red Cell Distribution Width 14.7 % (13.2-15.2); White Blood Count 10.5 K/mm3 (4.5-11.0)
[2016-09-22 19:31] LABS: Alanine Aminotransferase 25 units/L (7-56); Albumin 4.1 g/dL (3.9-5); Albumin/Globulin Ratio 2.1 %; Alkaline Phosphatase 59 units/L (35-129); Anion Gap 18 mmol/L; BUN/Creatinine Ratio 25.71; Blood Urea Nitrogen 18 mg/dL (7-17); Calcium 9.1 mg/dL (8.4-10.2); Carbon Dioxide 29 mmol/L (22-30); Chloride 98.4 mmol/L (98-107); Glucose 80 mg/dL (65-100); Sodium 141 mmol/L (137-145); Total Protein 6.1 g/dL (6.3-8.2)
[2016-09-22 19:34] LABS: INR 0.93 (0.87-1.13)
[2016-09-22 19:35] LABS: Partial Thromboplastin Time 34.5 Sec. (24.2-36.6)
[2016-09-22 21:15] VITALS: BP 113/65
--- NOTE | 2016-09-23 09:21 | XRay Report ---
AP chest x-ray. History: Shortness of breath. Findings: The lungs are hyperinflated. There are no focal infiltrates. The heart and pulmonary vessels are normal. There is no pleural fluid. Impression: COPD with no acute findings.
== END 2016-09-22 21:20 | disposition home or self-care (01) ==
LOC: ED 16:28
DX: I48.91 Unspecified atrial fibrillation (principal); Z86.19 Personal history of other infectious and parasitic diseases; Z88.6 Allergy status to analgesic agent; Z88.0 Allergy status to penicillin; Z88.8 Allergy status to other drugs, medicaments and biological substances
CPT/HCPCS: 36415; 71010; 80053; 84484; 85025; 85610; 85730; 93005; 93010; 96374; 96375; 99284; J2270; J2405

== ENCOUNTER 2017-01-26 14:53 | Emergency (ER) | payer MEDICARE ==
--- NOTE | 2017-01-26 16:30 | Emergency Department Report ---
Chief Complaint: Extremity Problem,Nontraumatic Stated Complaint: CELLULITIS ON LEGS Time Seen by Provider: 01/26/17 16:28 - HPI History of Present Illness: Patient came to the emergency room sent from [facility] urgent care for evaluation of cellulitis to both legs and she said her primary care doctor with [facility] agrees with this. Patient said that she was admitted in this hospital 12/07 2016 to 12/15/2016. Patient said she has a history of COPD and she is on oxygen 24 7. She said that she was in the hospital for shortness of breath, chest pain and fever. Previous notes reflect that patient was in this ER and she had venous Doppler study of her lower extremities and it reports that they did not see any clots at that time but patient says that her leg was not swollen nor did she have cellulitis at the time. Patient is complaining of swelling and redness to her legs that is within yellow fluid. She says she does not have any history of circulation problem but she did. Vascular doctor in the past and she doesn't know what's going on. Patient is allergic to aspirin. Her pain is 6 out of 10 and achy to both legs. Patient said that [facility] diagnosis with cellulitis of lower leg and she was sent here to start an antibiotic. She said the swelling to her legs and feet started more than a week ago and redness started one week ago. She denies any fever or chills today. She said prior to redness she had scratched her legs. She said she has leg swelling from time to time which is a chronic problem but she has not had any problem with redness, pain and was then from her legs. Patient denies any chest pain and she is usually short of breath because she is on oxygen but she said she is not short of breath just her usual shortness of breath from her COPD. Discharge notes from 12.09.16 reflects patient was having some swelling to her legs and complaining of pain to her lower extremity but did not say that patient was having any cellulitis. Pt smoked one pack a day for several years and she said she quit in August 2016. - ROS Review of Systems: All systems are negative unless stated in HPI above - Exam Vital Signs: Vital Signs 01/26/17 15:09 Temperature 97.8 F Pulse Rate 73 Respiratory 18 Rate Blood Pressure 117/73 O2 Sat by Pulse 99 Oximetry Physical Exam: Gen.: This is a frail-looking female that is nontoxic in appearance. CV: S1, S2. Regular rate and rhythm. Extremity: Bilateral lower extremity with swelling and tenderness to palpate to both legs and feet. Erythema to bilateral lower extremity. Pedal pulses are palpable. She has was in to her legs and she has gauze wrapped in because she says it's losing a lot and the fluid is yellow. Tender to palpate to both legs. Patient also has bruising and change in color without any swelling to both hands. Radial and ulnar pulses 2+. She said she was told that she had ran not years ago. She says she has pain in her hand that time but none now. Lungs: Decreased air entry throughout lung aguiar. Patient is on O2 at 2 L nasal cannula. Mild increased work of breathing and prescription said is normal for her MSE screening note: Focused history and physical exam performed. Due to findings the following was ordered: ED Medical Decision Making - Medical Decision Making MDM: Patient screened by provider in triage area. Appropriate protocol initiated and patient to be seen in main ED by ED Disposition for MSE Condition: Stable
[2017-01-26 18:29] LABS: Basophils % (Auto) 0.5 % (0.0-1.8); Eosinophils % (Auto) 0.9 % (0.0-4.3); Hematocrit 38.9 % (30.3-42.9); Mean Corpuscular HGB Conc 34 % (30-34); Mean Corpuscular Hemoglobin 31 pg (28-32); Mean Corpuscular Volume 93 fl (79-97); Platelet Count 248 K/mm3 (140-440); Red Blood Count 4.18 M/mm3 (3.65-5.03); Red Cell Distribution Width 15.2 % (13.2-15.2); White Blood Count 11.4 K/mm3 (4.5-11.0)
[2017-01-26 18:38] LABS: INR 0.74 (0.87-1.13)
[2017-01-26 18:39] LABS: Partial Thromboplastin Time 30.5 Sec. (24.2-36.6)
[2017-01-26 18:53] LABS: Alanine Aminotransferase 24 units/L (7-56); Albumin 3.9 g/dL (3.9-5); Albumin/Globulin Ratio 2.1 %; Alkaline Phosphatase 71 units/L (35-129); Anion Gap 18 mmol/L; BUN/Creatinine Ratio 23; Blood Urea Nitrogen 14 mg/dL (7-17); Calcium 9.1 mg/dL (8.4-10.2); Carbon Dioxide 31 mmol/L (22-30); Chloride 95.8 mmol/L (98-107); Glucose 136 mg/dL (65-100); Potassium 4.7 mmol/L (3.6-5.0); Sodium 140 mmol/L (137-145); Total Protein 5.8 g/dL (6.3-8.2)
[2017-01-27] MEDS ORDERED: CLEOCIN 600 MG/50 mL 600 MG/50 ML BAG IV ONE ×2 (02:08→03:27)
--- NOTE | 2017-01-27 02:16 | Emergency Department Report ---
ED Extremity Problem HPI - General Chief complaint: Extremity Problem,Nontraumatic Stated complaint: CELLULITIS ON LEGS Time Seen by Provider: 01/26/17 16:28 Source: patient Mode of arrival: Ambulatory Limitations: No Limitations - History of Present Illness Initial comments: 71 yo female who comes in today due to right lower extremity pain/edema. She states that she was seen at urgent care and then sent to the ER for eval/tx. She states that she was informed that she has cellulitis. She denies fever or chills. She does admit to worsening pain in her right lower extremity. MD Complaint: extremity pain -: days(s) (one ) Location: lower extremity (Right lower extremity ) History of Same: No -: Yes myalgia, Yes arthralgia Radiation: none Severity scale (0 -10): 6 Quality: aching Consistency: constant Improves with: elevation, rest Worsens with: walking - Related Data Home Medications Medication Instructions Recorded Confirmed Last Taken Carisoprodol 1 tab PO DAILY PRN 04/08/16 12/07/16 04/08/16 Umeclidinium [place] [Incruse 1 inhalation PO QDAY 12/07/16 12/07/16 Unknown Ellipta] Previous Rx's Medication Instructions Recorded Last Taken Type ALBUTEROL Inhaler [ProAir HFA 2 puff PO Q6H #30 inha 12/15/16 Unknown Rx Inhaler] Budesonide/Formoterol Fumarate 2 puff PO QAM #30 hfa.aer.ad 12/15/16 Unknown Rx [Symbicort 160-4.5 Mcg Inhaler] Fluconazole [Diflucan TAB] 100 mg PO QDAY #30 tablet 12/15/16 Unknown Rx Ipratropium/Albuterol Sulfate 1 ampul IH TIDRT #30 ampul.neb 12/15/16 Unknown Rx [DUONEB *Not for PRN Use*] Oxycodone HCl/Acetaminophen 1 tab PO TID #15 tablet 12/15/16 Unknown Rx [Percocet 10/325 mg] Pantoprazole [Protonix] 40 mg PO QDAY #30 tablet 12/15/16 Unknown Rx clonazePAM [KlonoPIN] 0.5 mg PO TID PRN #30 tablet 12/15/16 Unknown Rx predniSONE [Deltasone] 20 mg PO QDAY #12 tablet 12/15/16 Unknown Rx Clindamycin [Clindamycin CAP] 300 mg PO Q8H #30 cap 01/27/17 Unknown Rx Allergies Allergy/AdvReac Type Severity Reaction Status Date / Time aspirin Allergy Hives Verified 01/26/17 15:09 Iodinated Contrast- Oral and Allergy Anaphylaxis Verified 01/26/17 15:09 IV Dye iodine Allergy Anaphylaxis Verified 01/26/17 15:09 latex Allergy Rash Verified 01/26/17 15:09 moxifloxacin [From Avelox] Allergy Rash Verified 01/26/17 15:09 Penicillins Allergy Hives Verified 01/26/17 15:09 tetanus immune globulin Allergy Rash Verified 01/26/17 15:09 ED Review of Systems ROS: Stated complaint: CELLULITIS ON LEGS Other details as noted in HPI Constitutional: denies: chills, fever Eyes: denies: eye pain, eye discharge, vision change ENT: denies: ear pain, throat pain Respiratory: denies: cough, shortness of breath, wheezing Cardiovascular: denies: chest pain, palpitations Endocrine: no symptoms reported Gastrointestinal: denies: abdominal pain, nausea, diarrhea Genitourinary: denies: urgency, dysuria, discharge Musculoskeletal: as per HPI Skin: as per HPI Neurological: denies: headache, weakness, paresthesias Psychiatric: denies: anxiety, depression Hematological/Lymphatic: denies: easy bleeding, easy bruising ED Past Medical Hx - Past Medical History Previous Medical History?: Yes Hx Congestive Heart Failure: Yes Hx Diabetes: No Hx Liver Disease: Yes (Hep C) Hx Renal Disease: Yes (Rt. Kidney Mass) Hx COPD: Yes Additional medical history: Peripheral Vascular Disease - Surgical History Hx Cholecystectomy: Yes Hx Appendectomy: Yes Additional Surgical History: Tonsilectomy, Hysterectomy, Hernia repairs x2, Knee surgery for torn ligaments - Social History Smoking Status: Former Smoker Substance Use Type: None - Medications Home Medications: Home Medications Medication Instructions Recorded Confirmed Last Taken Type Carisoprodol 1 tab PO DAILY PRN 04/08/16 12/07/16 04/08/16 History Umeclidinium [place] [Incruse 1 inhalation PO QDAY 12/07/16 12/07/16 Unknown History Ellipta] ALBUTEROL Inhaler [ProAir HFA 2 puff PO Q6H #30 inha 12/15/16 Unknown Rx Inhaler] Budesonide/Formoterol Fumarate 2 puff PO QAM #30 hfa.aer.ad 12/15/16 Unknown Rx [Symbicort 160-4.5 Mcg Inhaler] Fluconazole [Diflucan TAB] 100 mg PO QDAY #30 tablet 12/15/16 Unknown Rx Ipratropium/Albuterol Sulfate 1 ampul IH TIDRT #30 ampul.neb 12/15/16 Unknown Rx [DUONEB *Not for PRN Use*] Oxycodone HCl/Acetaminophen 1 tab PO TID #15 tablet 12/15/16 Unknown Rx [Percocet 10/325 mg] Pantoprazole [Protonix] 40 mg PO QDAY #30 tablet 12/15/16 Unknown Rx clonazePAM [KlonoPIN] 0.5 mg PO TID PRN #30 tablet 12/15/16 Unknown Rx predniSONE [Deltasone] 20 mg PO QDAY #12 tablet 12/15/16 Unknown Rx Clindamycin [Clindamycin CAP] 300 mg PO Q8H #30 cap 01/27/17 Unknown Rx ED Physical Exam - General Limitations: No Limitations General appearance: alert, in no apparent distress - Head Head exam: Present: atraumatic, normocephalic - Eye Eye exam: Present: normal appearance - ENT ENT exam: Present: mucous membranes moist - Neck Neck exam: Present: normal inspection - Respiratory Respiratory exam: Present: normal lung sounds bilaterally. Absent: respiratory distress - Cardiovascular Cardiovascular Exam: Present: regular rate, normal rhythm. Absent: systolic murmur, diastolic murmur, rubs, gallop - Extremities Exam Extremities exam: Present: tenderness (right lower extremity ) - Back Exam Back exam: Present: normal inspection - Neurological Exam Neurological exam: Present: alert, oriented X3 - Psychiatric Psychiatric exam: Present: normal affect, normal mood - Skin Skin exam: Present: other (cellulitis-right lower extremity ) ED Course Vital Signs 01/26/17 01/26/17 01/26/17 15:09 23:12 23:28 Temperature 97.8 F 98.0 F Pulse Rate 73 64 Respiratory 18 16 16 Rate Blood Pressure 117/73 Blood Pressure 90/42 [Left] O2 Sat by Pulse 99 97 Oximetry - Reevaluation(s) Reevaluation #1: 01/27/17 03:40 Patient received iv clindamycin and blood cultures prior to discharge. Home with po antibiotics. ED Medical Decision Making - Lab Data Result diagrams: 01/26/17 17:58 01/26/17 17:58 Critical care attestation.: If time is entered above; I have spent that time in minutes in the direct care of this critically ill patient, excluding procedure time. ED Disposition Clinical Impression: Cellulitis of right lower extremity, Venous insufficiency of both lower extremities Disposition: - TO HOME OR SELFCARE Is pt being admited?: No Does the pt Need Aspirin: No Condition: Stable Instructions: Cellulitis (ED), Stasis Dermatitis (ED) Additional Instructions: Take medicines as prescribed. Remember to elevate your legs when not ambulating. Please also remember to wear your support stockings to assist with swelling in your lower extremities. Follow up with your provider upon completion of medication. Prescriptions: Clindamycin [Clindamycin CAP] 300 mg PO Q8H #30 cap Referrals: PRIMARY CARE, [Primary Care Provider] - 3-5 Days Time of Disposition: 03:45
[2017-01-27] MEDS ORDERED: TORADOL IV ONE (03:30)
[2017-01-27] MEDS ORDERED: ZOFRAN IV ONE (03:30)
[2017-01-27] MEDS ORDERED: MORPHINE IV ONE (03:30)
[2017-01-27 06:23] VITALS: BP 135/78
--- NOTE | 2017-01-27 07:32 | XRay Report ---
ROUTINE CHEST, TWO VIEWS: HISTORY: Cough, lower extremity edema. There is borderline heart size and pulmonary vascularity which has increased slightly since 12/07/16. The lungs are clear. No evidence for pneumonia, CHF or pneumothorax. IMPRESSION: Borderline to mild cardiomegaly and pulmonary vascular congestion.
--- NOTE | 2017-01-27 13:26 | Vascular Lab Report ---
LOWER EXTREMITY ARTERIAL DUPLEX: REASON FOR EXAM: Peripheral arterial disease. COMMENTS ON THE RIGHT: Monophasic waveforms are seen proximally. Monophasic waveforms are seen distally. No significant velocity gradients are identified. Scattered calcified diffuse plaque without focal stenosis. Findings are consistent with abnormal perfusion. Findings are inconclusive with the ability to heal distal wounds. COMMENTS ON THE LEFT: Monophasic waveforms are seen proximally. Monophasic waveforms are seen distally. No significant velocity gradients are identified. Scattered calcified plaque throughout the vessel without identifiable focal stenosis. Findings are consistent with abnormal perfusion. Findings are inconclusive with the ability to heal distal wounds. 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 LEFT:The study is consistent with aortoiliac inflow disease. Clinical correlation is recommended. If necessary contrast angiography should be considered..
== END 2017-01-27 04:00 | disposition home or self-care (01) ==
LOC: ED 14:53
DX: L03.115 Cellulitis of right lower limb (principal); I87.2 Venous insufficiency (chronic) (peripheral); I50.9 Heart failure, unspecified; J44.9 Chronic obstructive pulmonary disease, unspecified; Z88.0 Allergy status to penicillin; Z88.8 Allergy status to other drugs, medicaments and biological substances; Z88.6 Allergy status to analgesic agent; Z91.040 Latex allergy status; Z87.891 Personal history of nicotine dependence; Z98.890 Other specified postprocedural states
CPT/HCPCS: 36415; 71020; 80053; 83880; 85025; 85610; 85730; 87040; 93925; 93970; 96365; 96375; 99284; J1885; J2270; J2405

== ENCOUNTER 2017-03-23 13:20 | Outpatient (CLI) | payer MEDICARE ==
[2017-03-23 13:57] LABS: Hemoglobin 13.8 gm/dl (10.1-14.3); Mean Corpuscular HGB Conc 33 % (30-34); Mean Corpuscular Hemoglobin 30 pg (28-32); Mean Corpuscular Volume 92 fl (79-97); Platelet Count 266 K/mm3 (140-440); Red Blood Count 4.55 M/mm3 (3.65-5.03); Red Cell Distribution Width 14.5 % (13.2-15.2)
[2017-03-23 14:06] LABS: Alanine Aminotransferase 45 units/L (7-56); Albumin 3.8 g/dL (3.9-5); BUN/Creatinine Ratio 12; Blood Urea Nitrogen 7 mg/dL (7-17); Calcium 9.7 mg/dL (8.4-10.2); Hemolysis Index 2
[2017-03-23 14:22] LABS: HDL Cholesterol 74 mg/dL (40-59); LDL Cholesterol,Direct 124 mg/dL (50-130)
--- NOTE | 2017-03-23 17:23 | Cat Scan Report ---
FINAL REPORT EXAM: CT CHEST WO CON HISTORY: CHEST PAIN/COPD TECHNIQUE: Axial images were performed from the lung apices to the bases without contrast. Multiplanar reformats are performed on the acquisition scanner. Total exam DLP 476.25 mGy-cm Comparison: 12/11/2016 FINDINGS: There is mild posterior apical scarring. There has been interval development of very ill-defined infiltrate in the anterior segment right upper lobe. There is mild bronchiectasis this region. There peripheral nodular infiltrates. There is calcified granuloma in the posterior segment right upper lobe adjacent to the fissure. There is mild scarring in the inferior lingula. There is mild scarring/atelectasis in both bases. There is inferior right middle lobe scarring. There is an incompletely assessed left lobe thyroid 1.2 centimeter hypodense lesion. This is unchanged from previous. There are multiple small mediastinal lymph nodes including 7 millimeter pretracheal, smaller paratracheal and AP window. The aorta and pulmonary arteries have normal course and caliber. Heart size is normal. Imaged upper abdomen is within normal limits. There is a small pericardial effusion mostly adjacent to the right atrium/AV septum. Bones are osteopenic. There is exaggerated kyphosis. IMPRESSION: Ill-defined very mild infiltrate in the anterior right upper lobe. Mild associated bronchiectasis. Recommend follow-up CT to ensure complete resolution. This finding is not likely to be seen on chest x-ray. Mild scarring. Calcified posterior segment right upper lobe granuloma. 1.2 centimeter left lobe thyroid hypodense lesion incompletely assessed. Small pericardial effusion unchanged from previous is focal. Without I.V. contrast, cannot assess the pulmonary arteries or the aorta or any luminal structure. Cannot exclude PE or aortic dissection.
--- NOTE | 2017-03-23 19:30 | XRay Report ---
FINAL REPORT PROCEDURE: XR RIBS UNILAT 2V RT TECHNIQUE: RIGHT rib radiographs, 3 views of the ribs, including PA chest. HISTORY: Right-sided pain. COMPARISON: Chest radiograph dated 12/08/2015. Report not available for this examination. CT scan of the chest dated 03/23/2017. FINDINGS: Heart: Normal. Mediastinum/Vessels: Aortic calcification and tortuosity. Lungs: Hyperinflation. Densely calcified right upper lobe granuloma. Subtle interstitial prominence. Pleural space: Normal. Pneumothorax: None. Bony thorax/ribs: Moderate osteopenia. Multilevel degenerative changes of the thoracic spine. Slight dextroscoliotic curvature. Mild age indeterminate compression in the mid thoracic spine. This includes disc space narrowing and osteophytes. 7 x 3 mm sclerotic density about the right 7th rib felt to correspond to a bone island seen on CT scan. Other: Cholecystectomy clips. IMPRESSION: No radiographic evidence displaced rib fracture. Osteopenia and degenerative change. Aortic calcification and tortuosity. Hyperinflation suggests obstructive physiology. Subtle interstitial prominence.
[2017-03-27 15:45] LABS: Myeloperoxidase Antibody <1.0 AI (<1.0)
== END 2017-03-23 13:21 | disposition home or self-care (01) ==
LOC: CT 13:20
PROVIDERS: ATTEND Internal Medicine
DX: J44.9 Chronic obstructive pulmonary disease, unspecified (principal); J84.10 Pulmonary fibrosis, unspecified; J98.11 Atelectasis; I31.3 Pericardial effusion (noninflammatory); J98.4 Other disorders of lung; R91.8 Other nonspecific abnormal finding of lung field; N28.89 Other specified disorders of kidney and ureter; M85.80 Other specified disorders of bone density and structure, unspecified site; M40.294 Other kyphosis, thoracic region; I70.0 Atherosclerosis of aorta; M85.88 Other specified disorders of bone density and structure, other site; M47.894 Other spondylosis, thoracic region; M41.84 Other forms of scoliosis, thoracic region; Z90.49 Acquired absence of other specified parts of digestive tract
CPT/HCPCS: 36415; 71250; 80053; 80061; 84436; 84443; 85027; 86021; 86038; 86618

== ENCOUNTER 2021-02-10 14:01 | Emergency (ER) | payer MEDICARE ==
[2021-02-10] MEDS ORDERED: ALBUTEROL 2.5 MG/3 ML NEBU IH ONE (14:04)
[2021-02-10] MEDS ORDERED: methylPREDNISolone Sod Succinate 125 MG/2 ML INJ IV ONE (14:04)
[2021-02-10] MEDS ORDERED: IPRATROPIUM 0.02% NEBU 2.5 ML IH ONE (14:04)
--- NOTE | 2021-02-10 14:24 | Emergency Department Report ---
ED Shortness of Breath HPI - General Chief Complaint: Dyspnea/Respdistress Stated Complaint: SOB Time Seen by Provider: 02/10/21 14:03 Source: patient Mode of arrival: Stretcher Limitations: Other - History of Present Illness Initial Comments: Patient is 75 years old female with history of COPD and according to the patient daughter patient is DNR. Patient on hospice. Patient brought to the emergency room via EMS from local residence for evaluation of shortness of breath. EMS stated that patient initial oxygen saturation was 56% improved to 97% with nonrebreather and 5 mg of albuterol. Patient is not communicating. MD Complaint: shortness of breath, cough -: days(s) Improves With: bronchodilators Known History Of: COPD - Related Data Home Medications Medication Instructions Recorded Confirmed Last Taken carisoprodoL [Carisoprodol] 1 tab PO DAILY PRN 04/08/16 12/07/16 04/08/16 Umeclidinium [place] [Incruse 1 inhalation PO QDAY 12/07/16 12/07/16 Unknown Ellipta 62.5MCG] Previous Rx's Medication Instructions Recorded Last Taken Type Albuterol Mdi (or & Nicu Only) 2 puff PO Q6H #30 inha 12/15/16 Unknown Rx [ProAir HFA Inhaler] Budesonide/Formoterol Fumarate 2 puff PO QAM #30 hfa.aer.ad 12/15/16 Unknown Rx [Symbicort 160-4.5 Mcg Inhaler] Fluconazole [Diflucan TAB] 100 mg PO QDAY #30 tablet 12/15/16 Unknown Rx Ipratropium/Albuterol Sulfate 1 ampul IH TIDRT #30 ampul.neb 12/15/16 Unknown Rx [DUONEB *Not for PRN Use*] Oxycodone HCl/Acetaminophen 1 tab PO TID #15 tablet 12/15/16 Unknown Rx [Percocet 10/325 mg] Pantoprazole [Protonix] 40 mg PO QDAY #30 tablet 12/15/16 Unknown Rx clonazePAM [KlonoPIN] 0.5 mg PO TID PRN #30 tablet 12/15/16 Unknown Rx predniSONE [Deltasone] 20 mg PO QDAY #12 tablet 12/15/16 Unknown Rx Clindamycin [Clindamycin CAP] 300 mg PO Q8H #30 cap 01/27/17 Unknown Rx Allergies Allergy/AdvReac Type Severity Reaction Status Date / Time aspirin Allergy Hives Verified 01/26/17 15:09 Iodinated Contrast Media Allergy Anaphylaxis Verified 01/26/17 15:09 [Iodinated Contrast- Oral and IV Dye] iodine Allergy Anaphylaxis Verified 01/26/17 15:09 latex Allergy Rash Verified 01/26/17 15:09 moxifloxacin [From Avelox] Allergy Rash Verified 01/26/17 15:09 Penicillins Allergy Hives Verified 01/26/17 15:09 tetanus immune globulin Allergy Rash Verified 01/26/17 15:09 ED Review of Systems ROS: Stated complaint: SOB Other details as noted in HPI Comment: Unobtainable due to pts medical conditions ED Past Medical Hx - Past Medical History Hx Congestive Heart Failure: Yes Hx Diabetes: No Hx Liver Disease: Yes (Hep C) Hx Renal Disease: Yes (Rt. Kidney Mass) Hx COPD: Yes Additional medical history: Peripheral Vascular Disease - Surgical History Hx Cholecystectomy: Yes Hx Appendectomy: Yes Additional Surgical History: Tonsilectomy, Hysterectomy, Hernia repairs x2, Knee surgery for torn ligaments - Social History Smoking Status: Former Smoker Substance Use Type: None - Medications Home Medications: Home Medications Medication Instructions Recorded Confirmed Last Taken Type carisoprodoL [Carisoprodol] 1 tab PO DAILY PRN 04/08/16 12/07/16 04/08/16 History Umeclidinium [place] [Incruse 1 inhalation PO QDAY 12/07/16 12/07/16 Unknown History Ellipta 62.5MCG] Albuterol Mdi (or & Nicu Only) 2 puff PO Q6H #30 inha 12/15/16 Unknown Rx [ProAir HFA Inhaler] Budesonide/Formoterol Fumarate 2 puff PO QAM #30 hfa.aer.ad 12/15/16 Unknown Rx [Symbicort 160-4.5 Mcg Inhaler] Fluconazole [Diflucan TAB] 100 mg PO QDAY #30 tablet 12/15/16 Unknown Rx Ipratropium/Albuterol Sulfate 1 ampul IH TIDRT #30 ampul.neb 12/15/16 Unknown Rx [DUONEB *Not for PRN Use*] Oxycodone HCl/Acetaminophen 1 tab PO TID #15 tablet 12/15/16 Unknown Rx [Percocet 10/325 mg] Pantoprazole [Protonix] 40 mg PO QDAY #30 tablet 12/15/16 Unknown Rx clonazePAM [KlonoPIN] 0.5 mg PO TID PRN #30 tablet 12/15/16 Unknown Rx predniSONE [Deltasone] 20 mg PO QDAY #12 tablet 12/15/16 Unknown Rx Clindamycin [Clindamycin CAP] 300 mg PO Q8H #30 cap 01/27/17 Unknown Rx ED Physical Exam - General Limitations: Other General appearance: in distress - Head Head exam: Present: atraumatic, normocephalic, normal inspection - Eye Eye exam: Present: normal appearance - ENT ENT exam: Present: mucous membranes moist - Neck Neck exam: Present: normal inspection - Respiratory Respiratory exam: Present: respiratory distress, wheezes, rales, rhonchi, accessory muscle use, decreased breath sounds, prolonged expiratory - Cardiovascular Cardiovascular Exam: Present: tachycardia, irregular rhythm - GI/Abdominal GI/Abdominal exam: Present: soft, normal bowel sounds. Absent: distended, tenderness, guarding, rebound, rigid - Neurological Exam Neurological exam: Present: alert - Skin Skin exam: Present: warm, intact ED Course Vital Signs 02/10/21 02/10/21 02/10/21 14:08 14:33 15:03 Temperature 99.0 F Pulse Rate 133 H 126 H Pulse Rate [ 102 H Posterior] Respiratory 30 H 32 H Rate Respiratory 26 H Rate [Posterior ] Blood Pressure 115/68 [Right] O2 Sat by Pulse 99 92 Oximetry ED Medical Decision Making - Lab Data Result diagrams: 02/10/21 14:24 02/10/21 14:24 - Radiology Data Radiology results: report reviewed - Medical Decision Making Patient is 75 years old female with history of COPD and according to the patient daughter patient is DNR. Patient on hospice. Patient brought to the emergency room via EMS from local residence for evaluation of shortness of breath. EMS stated that patient initial oxygen saturation was 56% improved to 97% with nonrebreather and 5 mg of albuterol. Patient is not communicating. Patient received albuterol, Atrovent and Solu-Medrol. Chest x-ray showed right lower lobe infiltrate concerning for Covid and pneumonia. Patient given Rocephin 1 g IV. Patient daughter who has a power of research attorney she stated that she does not want the patient to be admitted and wanted to be transferred back to her home to continue her hospice. Critical care attestation.: If time is entered above; I have spent that time in minutes in the direct care of this critically ill patient, excluding procedure time. ED Disposition Clinical Impression: Acute exacerbation of COPD with asthma, Pneumonia Disposition: 01 HOME / SELF CARE / HOMELESS Is pt being admited?: No Condition: Stable Instructions: Bacterial Pneumonia (ED), Chronic Obstructive Pulmonary Disease, Community-Acquired Pneumonia, Adult Referrals: PRIMARY CARE, [Primary Care Provider] - 3-5 Days
--- NOTE | 2021-02-10 14:35 | XRay Report ---
CHEST 1 VIEW INDICATION / CLINICAL INFORMATION: Dyspnea. COMPARISON: 01/26/2017 FINDINGS: SUPPORT DEVICES: None. HEART / MEDIASTINUM: No significant abnormality. LUNGS / PLEURA: Left lung is clear. There are mild interstitial opacities within the right upper lobe . Right lung base is clear. No pleural effusion. No pneumothorax. ADDITIONAL FINDINGS: No significant additional findings. IMPRESSION: 1. Nonspecific interstitial pulmonary opacities, right upper lobe. Correlation with Covid status is r ecommended. Signer Name: Valerie Stanton MD Signed: 02/10/2021 2:31 PM Workstation Name: [id number]
[2021-02-10 14:50] LABS: Basophils % (Auto) 0.2 % (0.0-1.8); Lymphocytes # (Auto) 1.1 K/mm3 (1.2-5.4); Lymphocytes % (Auto) 6.5 % (13.4-35.0); Mean Corpuscular HGB Conc 29 % (30-34); Mean Corpuscular Volume 76 fl (79-97); Monocytes # (Auto) 0.8 K/mm3 (0.0-0.8); Monocytes % (Auto) 4.9 % (0.0-7.3); Platelet Count 345 K/mm3 (140-440); Red Blood Count 4.45 M/mm3 (3.65-5.03); Red Cell Distribution Width 18.2 % (13.2-15.2)
[2021-02-10 14:51] LABS: Hematocrit 33.8 % (30.3-42.9); Hemoglobin 9.7 gm/dl (10.1-14.3)
[2021-02-10 15:01] LABS: INR 0.75 (0.87-1.13); Partial Thromboplastin Time 28.1 Sec. (24.2-36.6)
[2021-02-10 15:13] LABS: Blood Urea Nitrogen 30 mg/dL (7-17); Calcium 9.2 mg/dL (8.4-10.2); Hemolysis Index 3
[2021-02-10 15:21] LABS: BUN/Creatinine Ratio 43
[2021-02-10] MEDS ORDERED: CLINDAMYCIN 600 MG/50 mL 600 MG/50 ML BAG IV ONE (15:41)
[2021-02-10 23:28] VITALS: BP 127/73
== END 2021-02-10 23:18 | disposition home or self-care (01) ==
LOC: ED 14:01
DX: J44.1 Chronic obstructive pulmonary disease with (acute) exacerbation (principal); J18.9 Pneumonia, unspecified organism; Z87.891 Personal history of nicotine dependence; Z90.49 Acquired absence of other specified parts of digestive tract; Z88.6 Allergy status to analgesic agent; Z91.041 Radiographic dye allergy status; Z91.040 Latex allergy status; Z88.1 Allergy status to other antibiotic agents; Z88.0 Allergy status to penicillin; Z88.7 Allergy status to serum and vaccine
CPT/HCPCS: 36415; 71045; 80048; 82140; 83880; 85025; 85610; 85730; 87040; 94640; 96365; 96375; 99284; J2930; J7502; 94644